=== PATIENT | male | born 1950 | race Caucasian/White ===

== ENCOUNTER 2017-03-10 11:53 | Inpatient (IN) | payer OTHER, MEDICAID ==
[~2017-03-10] VITALS: Ht 177.8 cm; Wt 89.8 kg
[2017-03-10 16:25] VITALS: BP_SYST 106
[2017-03-10] MEDS ORDERED: MULT240L PO (17:08)
[2017-03-10] MEDS ORDERED: DULR10 RC (17:08)
[2017-03-10] MEDS ORDERED: NA P118E RC (17:08)
[2017-03-10] MEDS ORDERED: LACTIN GT (17:08)
[2017-03-10] MEDS ORDERED: OMEP20CA10 GT (17:08)
[2017-03-10] MEDS ORDERED: FER300L GT (17:08)
[2017-03-10] MEDS ORDERED: EPOE20006 SUBCUT (17:08)
[2017-03-10] MEDS ORDERED: POLY17PO4 PO (17:08)
[2017-03-10] MEDS ORDERED: DEPL250/5 GT (17:08)
[2017-03-10] MEDS ORDERED: ROB1 GT (17:08)
[2017-03-10] MEDS ORDERED: TYLL650 GT (17:08)
[2017-03-10] MEDS ORDERED: MAGN400O4 PO (17:08)
[2017-03-10] MEDS ORDERED: TYC3 GT (17:09)
[2017-03-10] MEDS ORDERED: ASCO500T20 GT (17:09)
[2017-03-10] MEDS ORDERED: ZIN220 GT (17:09)
[2017-03-10] MEDS ORDERED: TYC3 PO (17:09)
[2017-03-10 17:27] LABS: BASOPHILS % (AUTO) 0.2 % (0.0-2.0); EOSINOPHILS # (AUTO) 0.4 K/uL (0.0-0.4); EOSINOPHILS % (AUTO) 3.7 % (0.0-4.0); LYMPHOCYTES # (AUTO) 1.2 K/uL (1.0-5.5); LYMPHOCYTES % (AUTO) 12.7 % (20.5-51.5); MEAN CORPUSCULAR HEMOGLOBIN 20 pg (27-31); MEAN CORPUSCULAR HGB CONC 29 % (32-36); MEAN CORPUSCULAR VOLUME 69 fL (79.0-98.0); MONOCYTES # (AUTO) 0.6 K/uL (0.0-1.0); MONOCYTES % (AUTO) 6.6 % (1.7-9.3); NEUTROPHILS # (AUTO) 7.5 K/uL (1.8-7.7); NEUTROPHILS % (AUTO) 76.8 % (40.0-70.0); PLATELET COUNT (AUTO) 399 K/uL (130-430); RED BLOOD CELL COUNT(AUTO) 3.17 MIL/uL (4.2-6.2); WHITE BLOOD COUNT (AUTO) 9.7 K/uL (4.8-10.8)
[2017-03-10] MEDS ORDERED: BISACODYL 10 MG/SUPPOSITORY RC PRN (17:30)
[2017-03-10] MEDS ORDERED: EPOETIN ALFA 20,000 UNITS/ML VIAL SUBCUT SCH (17:30)
[2017-03-10] MEDS ORDERED: MILK OF MAGNESIA 30 ML UDC PO PRN (17:30)
[2017-03-10] MEDS ORDERED: ACETAMINOPHEN/CODEINE 300 MG-30 MG TABLET GT PRN (17:30)
[2017-03-10] MEDS ORDERED: NA PHOS,M-B/NA PHOS,DI-BA 118 ML (FLEET ENEMA) RC PRN (17:30)
[2017-03-10] MEDS ORDERED: ACETAMINOPHEN 650 MG/20.3 ML UDC GT PRN (17:30)
[2017-03-10 17:31] LABS: ALBUMIN 2.6 g/dL (3.4-4.8); CALCIUM 8.6 mg/dL (8.4-11.0); CREATININE 0.56 mg/dL (0.55-1.30); INR 1.1 (0.80-1.20); POTASSIUM 3.8 mmol/L (3.5-5.1); PROTHROMBIN TIME 11.5 SECS (9.5-12.5); TOTAL BILIRUBIN 0.4 mg/dL (0.0-1.0)
[2017-03-10 17:33] LABS: HEMATOCRIT 21.7 % (36-54)
[2017-03-10] MEDS ORDERED: COMMUNICATION ORDER XX ONE (18:30)
[2017-03-10 18:31] LABS: BILIRUBIN,URINE NEGATIVE (NEGATIVE); BLOOD, URINE NEGATIVE (NEGATIVE); CLARITY/URINE HAZY (CLEAR); COLOR,URINE YELLOW (YELLOW); GLUCOSE,URINE NEGATIVE (NEGATIVE); KETONES,URINE NEGATIVE (NEGATIVE); LEUKOCYTE ESTERASE ,URINE 2+ (NEGATIVE); NITRITE, URINE POSITIVE (NEGATIVE); PH,URINE 6.5 (5.0-8.0); PROTEIN URINE TRACE (NEGATIVE)
[2017-03-10 18:33] LABS: BACTERIA,URINE MANY /HPF (None Seen); MUCUS,URINE 1+ /LPF (None Seen); RBC,URINE NONE SEEN /HPF (0-3); WBC,URINE 20-50 /HPF (0-3)
[2017-03-10 20:00] VITALS: BP_SYST 98
[2017-03-10 20:01] VITALS: BP_SYST 98
[2017-03-10] MEDS: FERROUS SULFATE 300 MG/5 ML UDC GT SCH (23:22)
[2017-03-10] MEDS: ASCORBIC ACID 500 MG TABLET GT SCH (23:23)
[2017-03-10] MEDS: ACETAMINOPHEN/CODEINE 300 MG-30 MG TABLET PO SCH (23:23)
[2017-03-10] MEDS: POLYETHYLENE GLYCOL 3350, 17 GM/ POWD.PACK PO SCH (23:23)
[2017-03-10] MEDS: GLYCOPYRROLATE 1 MG TABLET GT SCH (23:24)
[2017-03-11 00:30] VITALS: BP_SYST 110
[2017-03-11] MEDS ORDERED: FUROSEMIDE 20 MG/2 ML VIAL IVP ONE ×2 (01:15→03:30)
[2017-03-11 04:22] VITALS: BP_SYST 107
[2017-03-11 07:34] VITALS: BP_SYST 103
[2017-03-11] MEDS: ASCORBIC ACID 500 MG TABLET GT SCH ×2 (08:38→20:08)
[2017-03-11] MEDS: FERROUS SULFATE 300 MG/5 ML UDC GT SCH ×3 (08:38→20:08)
[2017-03-11] MEDS: PANTOPRAZOLE GRANULES PACKET 40 MG GT SCH (08:38)
[2017-03-11] MEDS: VALPROIC ACID ORAL SYRUP 250 MG/5 ML UDC GT SCH (08:38)
[2017-03-11] MEDS: ACETAMINOPHEN/CODEINE 300 MG-30 MG TABLET PO SCH ×2 (08:39→20:09)
[2017-03-11] MEDS: GLYCOPYRROLATE 1 MG TABLET GT SCH ×3 (08:41→20:08)
[2017-03-11 10:54] LABS: BASOPHILS % (AUTO) 0.3 % (0.0-2.0); EOSINOPHILS # (AUTO) 0.4 K/uL (0.0-0.4); EOSINOPHILS % (AUTO) 3.9 % (0.0-4.0); HEMATOCRIT 30.6 % (36-54); HEMOGLOBIN 9.2 g/dL (14.0-18.0); LYMPHOCYTES # (AUTO) 1.5 K/uL (1.0-5.5); LYMPHOCYTES % (AUTO) 13.1 % (20.5-51.5); MEAN CORPUSCULAR HEMOGLOBIN 22 pg (27-31); MEAN CORPUSCULAR HGB CONC 30 % (32-36); MEAN CORPUSCULAR VOLUME 74 fL (79.0-98.0); MONOCYTES # (AUTO) 0.7 K/uL (0.0-1.0); MONOCYTES % (AUTO) 6.5 % (1.7-9.3); NEUTROPHILS # (AUTO) 8.6 K/uL (1.8-7.7); NEUTROPHILS % (AUTO) 76.2 % (40.0-70.0); PLATELET COUNT (AUTO) 457 K/uL (130-430); RED BLOOD CELL COUNT(AUTO) 4.17 MIL/uL (4.2-6.2); RED CELL DISTRIBUTION WIDTH 20.5 % (9.0-15.0); WHITE BLOOD COUNT (AUTO) 11.2 K/uL (4.8-10.8)
[2017-03-11 11:24] VITALS: BP_SYST 106
[2017-03-11] MEDS: cefTRIAXone 1 GM in D5W 50 ML IV SCH (11:40)
[2017-03-11] MEDS: NYSTATIN 15 GM TOPICAL POWDER TP SCH ×2 (14:08→20:09)
[2017-03-11] MEDS: EPOETIN ALFA 20,000 UNITS/ML VIAL SUBCUT SCH (14:45)
[2017-03-11 15:57] VITALS: BP_SYST 107
[2017-03-11 19:10] VITALS: BP_SYST 108
[2017-03-11] MEDS: POLYETHYLENE GLYCOL 3350, 17 GM/ POWD.PACK PO SCH (20:10)
[2017-03-12] VITALS (8 sets, daily range): BP systolic 97–110
[2017-03-12 07:45] LABS: BASOPHILS # (AUTO) 0.2 K/uL (0.0-0.2); BASOPHILS % (AUTO) 2.3 % (0.0-2.0); EOSINOPHILS # (AUTO) 0.3 K/uL (0.0-0.4); EOSINOPHILS % (AUTO) 2.6 % (0.0-4.0); HEMATOCRIT 30.4 % (36-54); HEMOGLOBIN 9.5 g/dL (14.0-18.0); LYMPHOCYTES # (AUTO) 1.2 K/uL (1.0-5.5); LYMPHOCYTES % (AUTO) 11.2 % (20.5-51.5); MEAN CORPUSCULAR HEMOGLOBIN 23 pg (27-31); MEAN CORPUSCULAR HGB CONC 31 % (32-36); MEAN CORPUSCULAR VOLUME 73 fL (79.0-98.0); MONOCYTES # (AUTO) 0.5 K/uL (0.0-1.0); MONOCYTES % (AUTO) 4.5 % (1.7-9.3); NEUTROPHILS # (AUTO) 8.6 K/uL (1.8-7.7); NEUTROPHILS % (AUTO) 79.4 % (40.0-70.0); PLATELET COUNT (AUTO) 417 K/uL (130-430); RED BLOOD CELL COUNT(AUTO) 4.18 MIL/uL (4.2-6.2); WHITE BLOOD COUNT (AUTO) 10.8 K/uL (4.8-10.8)
[2017-03-12] MEDS ORDERED: IPRATROPIUM BROM 0.5 MG/2.5 ML VIAL.NEB (ATROVENT) INH PRN (08:00)
[2017-03-12] MEDS ORDERED: ALBUTEROL SULFATE 0.083% 2.5 MG/3 ML VIAL.NEB INH PRN (08:00)
[2017-03-12 08:14] LABS: CALCIUM 9.3 mg/dL (8.4-11.0); CREATININE 0.73 mg/dL (0.55-1.30); POTASSIUM 3.9 mmol/L (3.5-5.1)
[2017-03-12] MEDS: ASCORBIC ACID 500 MG TABLET GT SCH ×2 (08:36→22:39)
[2017-03-12] MEDS: FERROUS SULFATE 300 MG/5 ML UDC GT SCH ×3 (08:36→22:39)
[2017-03-12] MEDS: VALPROIC ACID ORAL SYRUP 250 MG/5 ML UDC GT SCH (08:36)
[2017-03-12] MEDS: ACETAMINOPHEN/CODEINE 300 MG-30 MG TABLET PO SCH ×2 (08:37→22:40)
[2017-03-12] MEDS: NYSTATIN 15 GM TOPICAL POWDER TP SCH ×2 (08:38→22:41)
[2017-03-12] MEDS: GLYCOPYRROLATE 1 MG TABLET GT SCH ×3 (08:39→22:40)
[2017-03-12] MEDS: PANTOPRAZOLE GRANULES PACKET 40 MG GT SCH (08:39)
[2017-03-12] MEDS: cefTRIAXone 1 GM in D5W 50 ML IV SCH (12:02)
[2017-03-12] MEDS: IPRATROPIUM BROM 0.5 MG/2.5 ML VIAL.NEB (ATROVENT) INH SCH ×3 (15:00→19:36)
[2017-03-12] MEDS: ALBUTEROL SULFATE 0.083% 2.5 MG/3 ML VIAL.NEB INH SCH ×3 (15:00→19:36)
[2017-03-12] MEDS: MUPIROCIN NASAL 2% OINT. 1 GM NS SCH (21:00)
[2017-03-12] MEDS: POLYETHYLENE GLYCOL 3350, 17 GM/ POWD.PACK PO SCH (22:40)
[2017-03-13] VITALS (7 sets, daily range): BP systolic 100–123
[2017-03-13] MEDS: ALBUTEROL SULFATE 0.083% 2.5 MG/3 ML VIAL.NEB INH SCH ×4 (01:33→19:39)
[2017-03-13] MEDS: IPRATROPIUM BROM 0.5 MG/2.5 ML VIAL.NEB (ATROVENT) INH SCH ×4 (01:34→19:39)
[2017-03-13 07:41] LABS: BASOPHILS % (AUTO) 0.2 % (0.0-2.0); EOSINOPHILS # (AUTO) 0.2 K/uL (0.0-0.4); EOSINOPHILS % (AUTO) 1.9 % (0.0-4.0); HEMOGLOBIN 9.5 g/dL (14.0-18.0); LYMPHOCYTES # (AUTO) 1.6 K/uL (1.0-5.5); LYMPHOCYTES % (AUTO) 15.4 % (20.5-51.5); MEAN CORPUSCULAR HEMOGLOBIN 23 pg (27-31); MEAN CORPUSCULAR HGB CONC 31 % (32-36); MEAN CORPUSCULAR VOLUME 74 fL (79.0-98.0); MONOCYTES # (AUTO) 0.8 K/uL (0.0-1.0); MONOCYTES % (AUTO) 7.5 % (1.7-9.3); PLATELET COUNT (AUTO) 423 K/uL (130-430); RED BLOOD CELL COUNT(AUTO) 4.19 MIL/uL (4.2-6.2); RED CELL DISTRIBUTION WIDTH 21.2 % (9.0-15.0); WHITE BLOOD COUNT (AUTO) 10.6 K/uL (4.8-10.8)
[2017-03-13] MEDS: VALPROIC ACID ORAL SYRUP 250 MG/5 ML UDC GT SCH (08:47)
[2017-03-13] MEDS: FERROUS SULFATE 300 MG/5 ML UDC GT SCH ×3 (08:47→21:00)
[2017-03-13] MEDS: GLYCOPYRROLATE 1 MG TABLET GT SCH ×3 (08:47→21:00)
[2017-03-13] MEDS: PANTOPRAZOLE GRANULES PACKET 40 MG GT SCH (08:48)
[2017-03-13] MEDS: ACETAMINOPHEN/CODEINE 300 MG-30 MG TABLET PO SCH ×2 (08:48→21:00)
[2017-03-13] MEDS: ASCORBIC ACID 500 MG TABLET GT SCH ×2 (08:48→21:00)
[2017-03-13] MEDS: EPOETIN ALFA 20,000 UNITS/ML VIAL SUBCUT SCH (08:48)
[2017-03-13] MEDS: NYSTATIN 15 GM TOPICAL POWDER TP SCH ×2 (08:49→21:13)
[2017-03-13] MEDS: MUPIROCIN NASAL 2% OINT. 1 GM NS SCH ×2 (08:49→21:13)
[2017-03-13] MEDS ORDERED: MAGNESIUM CITRATE 300 ML ORAL SOLUTION GT ONE (09:15)
[2017-03-13] MEDS: cefTRIAXone 1 GM in D5W 50 ML IV SCH (11:10)
[2017-03-13] MEDS: D5NS 1,000 ML IV SCH ×2 (16:18→23:46)
[2017-03-13] MEDS ORDERED: GOLYTELY / COLYTE SOLUTION 4 LITERS GT ONE (18:00)
[2017-03-13] MEDS: POLYETHYLENE GLYCOL 3350, 17 GM/ POWD.PACK PO SCH (21:00)
[2017-03-14] MEDS: ALBUTEROL SULFATE 0.083% 2.5 MG/3 ML VIAL.NEB INH SCH ×4 (00:27→19:53)
[2017-03-14] MEDS: IPRATROPIUM BROM 0.5 MG/2.5 ML VIAL.NEB (ATROVENT) INH SCH ×4 (00:28→19:53)
[2017-03-14 04:00] VITALS: BP_SYST 99
[2017-03-14 07:27] LABS: BASOPHILS % (AUTO) 0.2 % (0.0-2.0); EOSINOPHILS # (AUTO) 0.2 K/uL (0.0-0.4); EOSINOPHILS % (AUTO) 1.8 % (0.0-4.0); HEMATOCRIT 29.7 % (36-54); HEMOGLOBIN 9.2 g/dL (14.0-18.0); LYMPHOCYTES # (AUTO) 0.9 K/uL (1.0-5.5); LYMPHOCYTES % (AUTO) 8.9 % (20.5-51.5); MEAN CORPUSCULAR HEMOGLOBIN 23 pg (27-31); MEAN CORPUSCULAR HGB CONC 31 % (32-36); MEAN CORPUSCULAR VOLUME 75 fL (79.0-98.0); MONOCYTES # (AUTO) 0.5 K/uL (0.0-1.0); MONOCYTES % (AUTO) 4.6 % (1.7-9.3); NEUTROPHILS # (AUTO) 8.8 K/uL (1.8-7.7); NEUTROPHILS % (AUTO) 84.5 % (40.0-70.0); PLATELET COUNT (AUTO) 425 K/uL (130-430); RED BLOOD CELL COUNT(AUTO) 3.98 MIL/uL (4.2-6.2); WHITE BLOOD COUNT (AUTO) 10.4 K/uL (4.8-10.8)
[2017-03-14 07:57] LABS: INR 1.1 (0.80-1.20); PROTHROMBIN TIME 11.5 SECS (9.5-12.5)
[2017-03-14 08:12] VITALS: BP_SYST 112
[2017-03-14 08:21] LABS: CALCIUM 8.8 mg/dL (8.4-11.0); CREATININE 0.64 mg/dL (0.55-1.30); POTASSIUM 4.1 mmol/L (3.5-5.1)
[2017-03-14] MEDS: VALPROIC ACID ORAL SYRUP 250 MG/5 ML UDC GT SCH (09:00)
[2017-03-14] MEDS: ASCORBIC ACID 500 MG TABLET GT SCH ×2 (09:00→22:05)
[2017-03-14] MEDS: ACETAMINOPHEN/CODEINE 300 MG-30 MG TABLET PO SCH ×2 (09:00→22:06)
[2017-03-14] MEDS: PANTOPRAZOLE GRANULES PACKET 40 MG GT SCH (09:00)
[2017-03-14] MEDS: FERROUS SULFATE 300 MG/5 ML UDC GT SCH ×3 (09:00→22:05)
[2017-03-14] MEDS: GLYCOPYRROLATE 1 MG TABLET GT SCH ×3 (09:00→22:06)
[2017-03-14] MEDS: MUPIROCIN NASAL 2% OINT. 1 GM NS SCH ×2 (09:08→22:07)
[2017-03-14] MEDS: NYSTATIN 15 GM TOPICAL POWDER TP SCH ×2 (09:09→22:08)
[2017-03-14 11:01] LABS: HEMOGLOBIN 6.3 g/dL (14.0-18.0)
[2017-03-14 12:30] VITALS: BP_SYST 164
[2017-03-14] MEDS: D5NS 1,000 ML IV SCH (14:15)
[2017-03-14] MEDS: cefTRIAXone 1 GM in D5W 50 ML IV SCH (14:15)
[2017-03-14] MEDS: MIDAZOLAM HCL 5 MG/5 ML VIAL ONE ×2 (15:07→16:14)
[2017-03-14] MEDS ORDERED: SIMETHICONE 40 MG/0.6 ML ML ONE (15:08)
[2017-03-14] MEDS ORDERED: fentaNYL CITRATE/PF 100 MCG/2 ML AMP ONE (15:08)
[2017-03-14 16:04] VITALS: BP_SYST 100
[2017-03-14 19:41] VITALS: BP_SYST 120
[2017-03-14] MEDS: POLYETHYLENE GLYCOL 3350, 17 GM/ POWD.PACK PO SCH (21:00)
[2017-03-14 23:57] VITALS: BP_SYST 106
[2017-03-15] MEDS: IPRATROPIUM BROM 0.5 MG/2.5 ML VIAL.NEB (ATROVENT) INH SCH ×4 (00:34→19:36)
[2017-03-15] MEDS: ALBUTEROL SULFATE 0.083% 2.5 MG/3 ML VIAL.NEB INH SCH ×4 (00:34→19:36)
[2017-03-15 03:53] VITALS: BP_SYST 113
[2017-03-15] MEDS: D5NS 1,000 ML IV SCH (05:10)
[2017-03-15 08:00] VITALS: BP_SYST 130
[2017-03-15] MEDS: FERROUS SULFATE 300 MG/5 ML UDC GT SCH ×3 (09:23→21:05)
[2017-03-15] MEDS: GLYCOPYRROLATE 1 MG TABLET GT SCH ×3 (09:24→21:06)
[2017-03-15] MEDS: ASCORBIC ACID 500 MG TABLET GT SCH ×2 (09:25→21:06)
[2017-03-15] MEDS: ACETAMINOPHEN/CODEINE 300 MG-30 MG TABLET PO SCH ×2 (09:25→21:06)
[2017-03-15] MEDS: MUPIROCIN NASAL 2% OINT. 1 GM NS SCH ×2 (09:32→21:04)
[2017-03-15] MEDS: NYSTATIN 15 GM TOPICAL POWDER TP SCH ×2 (09:34→21:05)
[2017-03-15] MEDS: VALPROIC ACID ORAL SYRUP 250 MG/5 ML UDC GT SCH (09:37)
[2017-03-15] MEDS: PANTOPRAZOLE GRANULES PACKET 40 MG GT SCH (09:37)
[2017-03-15] MEDS: cefTRIAXone 1 GM in D5W 50 ML IV SCH (10:42)
[2017-03-15 12:19] VITALS: BP_SYST 130
[2017-03-15 12:20] VITALS: BP_SYST 106
[2017-03-15 17:07] VITALS: BP_SYST 99
[2017-03-15 19:30] VITALS: BP_SYST 95
[2017-03-15] MEDS: POLYETHYLENE GLYCOL 3350, 17 GM/ POWD.PACK PO SCH (21:05)
[2017-03-16] VITALS (9 sets, daily range): BP systolic 105–136
[2017-03-16] MEDS: IPRATROPIUM BROM 0.5 MG/2.5 ML VIAL.NEB (ATROVENT) INH SCH ×3 (00:15→17:16)
[2017-03-16] MEDS: ALBUTEROL SULFATE 0.083% 2.5 MG/3 ML VIAL.NEB INH SCH ×3 (00:15→17:16)
[2017-03-16] MEDS: EPOETIN ALFA 20,000 UNITS/ML VIAL SUBCUT SCH (09:31)
[2017-03-16] MEDS: FERROUS SULFATE 300 MG/5 ML UDC GT SCH ×2 (09:31→15:00)
[2017-03-16] MEDS: GLYCOPYRROLATE 1 MG TABLET GT SCH ×2 (09:32→15:00)
[2017-03-16] MEDS: PANTOPRAZOLE GRANULES PACKET 40 MG GT SCH (09:32)
[2017-03-16] MEDS: ACETAMINOPHEN/CODEINE 300 MG-30 MG TABLET PO SCH (09:32)
[2017-03-16] MEDS: ASCORBIC ACID 500 MG TABLET GT SCH (09:32)
[2017-03-16] MEDS: VALPROIC ACID ORAL SYRUP 250 MG/5 ML UDC GT SCH (09:34)
[2017-03-16] MEDS: ANTIFUNGAL CLEAR OINTMENT TP SCH ×2 (09:35→21:00)
[2017-03-16] MEDS: NYSTATIN 15 GM TOPICAL POWDER TP SCH ×2 (09:35→22:53)
[2017-03-16] MEDS: MUPIROCIN NASAL 2% OINT. 1 GM NS SCH ×2 (09:35→22:53)
[2017-03-16 13:20] LABS: BASOPHILS % (AUTO) 0.3 % (0.0-2.0); EOSINOPHILS # (AUTO) 0.3 K/uL (0.0-0.4); EOSINOPHILS % (AUTO) 3.2 % (0.0-4.0); HEMATOCRIT 28.3 % (36-54); HEMOGLOBIN 8.6 g/dL (14.0-18.0); LYMPHOCYTES # (AUTO) 1.6 K/uL (1.0-5.5); LYMPHOCYTES % (AUTO) 17.3 % (20.5-51.5); MEAN CORPUSCULAR HEMOGLOBIN 23 pg (27-31); MEAN CORPUSCULAR HGB CONC 31 % (32-36); MEAN CORPUSCULAR VOLUME 74 fL (79.0-98.0); MONOCYTES # (AUTO) 0.7 K/uL (0.0-1.0); MONOCYTES % (AUTO) 7.1 % (1.7-9.3); NEUTROPHILS # (AUTO) 6.9 K/uL (1.8-7.7); NEUTROPHILS % (AUTO) 72.1 % (40.0-70.0); PLATELET COUNT (AUTO) 367 K/uL (130-430); RED BLOOD CELL COUNT(AUTO) 3.82 MIL/uL (4.2-6.2); RED CELL DISTRIBUTION WIDTH 21.2 % (9.0-15.0); WHITE BLOOD COUNT (AUTO) 9.5 K/uL (4.8-10.8)
[2017-03-16 13:35] LABS: CALCIUM 8.7 mg/dL (8.4-11.0); CREATININE 0.75 mg/dL (0.55-1.30); POTASSIUM 4.1 mmol/L (3.5-5.1)
[2017-03-16 13:42] LABS: INR 1.1 (0.80-1.20); PROTHROMBIN TIME 11.6 SECS (9.5-12.5)
[2017-03-16] MEDS ORDERED: ROCURONIUM BROMIDE 10 MG/ML (ZEMURON) IV ONE (19:00)
[2017-03-16] MEDS ORDERED: SEVOFLURANE 15 MIN GAS INH ONE (19:00)
[2017-03-16] MEDS ORDERED: NS IRRIG SOLN 1000 ML IR ONE (19:00)
[2017-03-16] MEDS ORDERED: NS 1000 ML BAG IV ONE (19:00)
[2017-03-16] MEDS ORDERED: fentaNYL CITRATE 250 MCG/5 ML AMP IV ONE (19:00)
[2017-03-16] MEDS ORDERED: metroNIDAZOLE 500 mg/NS 100 mL IVPB IV ONE (19:00)
[2017-03-16] MEDS ORDERED: LR 1,000 ML IV.SOLN IV ONE (19:00)
[2017-03-16] MEDS ORDERED: PIPERACILLIN/TAZOBACTAM 3.375 GM/VIAL (ZOSYN) IV ONE (19:00)
[2017-03-16] MEDS ORDERED: PIPERACILLIN/TAZO 3.375/DEX-IS 50 ML IV ONE (19:15)
[2017-03-16] MEDS ORDERED: MORPHINE 2 MG/ML INJ. SYRINGE IVP PRN (19:15)
[2017-03-16] MEDS ORDERED: ONDANSETRON HCL 4 MG/2 ML VIAL IM PRN (19:15)
[2017-03-16] MEDS: POLYETHYLENE GLYCOL 3350, 17 GM/ POWD.PACK PO SCH (21:00)
[2017-03-16] MEDS: metroNIDAZOLE 500 mg/NS 100 ML IV SCH (22:40)
[2017-03-16] MEDS ORDERED: D5NS 1,000 ML IV SCH (22:45)
[2017-03-17] VITALS (34 sets, daily range): BP systolic 98–128
[2017-03-17] MEDS: PIPERACILLIN/TAZO 3.375/DEX-IS 50 ML IV SCH ×4 (01:43→17:40)
[2017-03-17] MEDS: IPRATROPIUM BROM 0.5 MG/2.5 ML VIAL.NEB (ATROVENT) INH SCH ×3 (01:53→19:41)
[2017-03-17] MEDS: ALBUTEROL SULFATE 0.083% 2.5 MG/3 ML VIAL.NEB INH SCH ×3 (01:53→19:41)
[2017-03-17] MEDS: metroNIDAZOLE 500 mg/NS 100 ML IV SCH ×3 (04:24→21:28)
[2017-03-17 06:27] LABS: HEMOGLOBIN 9.3 g/dL (14.0-18.0); MEAN CORPUSCULAR HEMOGLOBIN 23 pg (27-31); MEAN CORPUSCULAR HGB CONC 31 % (32-36); MEAN CORPUSCULAR VOLUME 75 fL (79.0-98.0); PLATELET COUNT (AUTO) 357 K/uL (130-430); RED BLOOD CELL COUNT(AUTO) 4.02 MIL/uL (4.2-6.2); RED CELL DISTRIBUTION WIDTH 20.8 % (9.0-15.0); WHITE BLOOD COUNT (AUTO) 16.3 K/uL (4.8-10.8)
[2017-03-17 06:42] LABS: ALBUMIN 2.5 g/dL (3.4-4.8); CALCIUM 8.2 mg/dL (8.4-11.0); CREATININE 0.71 mg/dL (0.55-1.30); POTASSIUM 3.8 mmol/L (3.5-5.1); TOTAL BILIRUBIN 1.2 mg/dL (0.0-1.0)
[2017-03-17 07:54] LABS: ATYPICAL LYMPHOCYTES % 0 % (0-0); BAND % (MANUAL) 4 % (0-6); BASOPHILS % (MANUAL) 0 % (0-2); EOSINOPHILS % (MANUAL) 0 % (0-7); LYMPHOCYTES % (MANUAL) 4 % (20-46); MONOCYTES % (MANUAL) 2 % (0-11)
[2017-03-17 09:46] LABS: BILIRUBIN,URINE 1+ (NEGATIVE); CLARITY/URINE CLEAR (CLEAR); COLOR,URINE YELLOW (YELLOW); GLUCOSE,URINE NEGATIVE (NEGATIVE); KETONES,URINE NEGATIVE (NEGATIVE); LEUKOCYTE ESTERASE ,URINE TRACE (NEGATIVE); NITRITE, URINE NEGATIVE (NEGATIVE); PROTEIN URINE 1+ (NEGATIVE)
[2017-03-17 09:50] LABS: BLOOD, URINE TRACE (NEGATIVE)
[2017-03-17 09:52] LABS: BACTERIA,URINE RARE /HPF (None Seen); MUCUS,URINE 1+ /LPF (None Seen); RBC,URINE 0-3 /HPF (0-3); WBC,URINE 0-3 /HPF (0-3)
[2017-03-17] MEDS: VALPROIC ACID ORAL SYRUP 250 MG/5 ML UDC GT SCH (10:10)
[2017-03-17] MEDS: PANTOPRAZOLE GRANULES PACKET 40 MG GT SCH (10:10)
[2017-03-17] MEDS: NYSTATIN 15 GM TOPICAL POWDER TP SCH ×2 (10:11→21:29)
[2017-03-17] MEDS: ANTIFUNGAL CLEAR OINTMENT TP SCH ×2 (10:12→21:30)
[2017-03-17] MEDS: MUPIROCIN NASAL 2% OINT. 1 GM NS SCH ×2 (10:12→21:30)
[2017-03-17] MEDS: D5NS 1,000 ML IV SCH ×2 (10:31→15:29)
[2017-03-17] MEDS: ACETAMINOPHEN 650 MG/20.3 ML UDC GT PRN (10:32)
[2017-03-17] MEDS: POLYETHYLENE GLYCOL 3350, 17 GM/ POWD.PACK PO SCH (21:28)
[2017-03-18] VITALS (36 sets, daily range): BP systolic 97–136
[2017-03-18] MEDS: ALBUTEROL SULFATE 0.083% 2.5 MG/3 ML VIAL.NEB INH SCH ×4 (00:06→19:50)
[2017-03-18] MEDS: IPRATROPIUM BROM 0.5 MG/2.5 ML VIAL.NEB (ATROVENT) INH SCH ×4 (00:07→19:50)
[2017-03-18] MEDS: PIPERACILLIN/TAZO 3.375/DEX-IS 50 ML IV SCH ×4 (00:17→17:30)
[2017-03-18] MEDS: ACETAMINOPHEN 650 MG/20.3 ML UDC GT PRN ×4 (01:19→23:09)
[2017-03-18] MEDS ORDERED: NACL 0.9% 1,000 ML IV ONE (02:15)
[2017-03-18] MEDS ORDERED: VANCOMYCIN HCL 1 GM/NS PREMIX 250 ML IV ONE (02:15)
[2017-03-18] MEDS: metroNIDAZOLE 500 mg/NS 100 ML IV SCH ×3 (03:55→19:40)
[2017-03-18] MEDS ORDERED: CEFEPIME 1 GM in D5W 50 ML IV ONE (04:00)
[2017-03-18] MEDS ORDERED: CEFEPIME 1 GM/VIAL (MAXIPIME) ONE (04:18)
[2017-03-18] MEDS ORDERED: VANCOMYCIN HCL 1000 MG/VIAL IV ONE (04:19)
[2017-03-18] MEDS: D5NS 1,000 ML IV SCH ×2 (06:22→17:31)
[2017-03-18 06:38] LABS: BASOPHILS % (AUTO) 0.1 % (0.0-2.0); HEMATOCRIT 23.4 % (36-54); HEMOGLOBIN 7.2 g/dL (14.0-18.0); LYMPHOCYTES # (AUTO) 1.1 K/uL (1.0-5.5); LYMPHOCYTES % (AUTO) 11.7 % (20.5-51.5); MEAN CORPUSCULAR HEMOGLOBIN 23 pg (27-31); MEAN CORPUSCULAR HGB CONC 31 % (32-36); MEAN CORPUSCULAR VOLUME 75 fL (79.0-98.0); MONOCYTES # (AUTO) 0.7 K/uL (0.0-1.0); MONOCYTES % (AUTO) 7.8 % (1.7-9.3); NEUTROPHILS # (AUTO) 7.5 K/uL (1.8-7.7); PLATELET COUNT (AUTO) 266 K/uL (130-430); RED BLOOD CELL COUNT(AUTO) 3.11 MIL/uL (4.2-6.2); RED CELL DISTRIBUTION WIDTH 20.8 % (9.0-15.0); WHITE BLOOD COUNT (AUTO) 9.3 K/uL (4.8-10.8)
[2017-03-18 06:47] LABS: ALBUMIN 2.2 g/dL (3.4-4.8); CALCIUM 7.8 mg/dL (8.4-11.0); CREATININE 0.71 mg/dL (0.55-1.30); TOTAL BILIRUBIN 0.5 mg/dL (0.0-1.0)
[2017-03-18 07:28] LABS: NEUTROPHILS % (AUTO) 80.4 % (40.0-70.0)
[2017-03-18] MEDS: ANTIFUNGAL CLEAR OINTMENT TP SCH ×2 (09:00→21:44)
[2017-03-18] MEDS: VALPROIC ACID ORAL SYRUP 250 MG/5 ML UDC GT SCH (09:54)
[2017-03-18] MEDS: PANTOPRAZOLE GRANULES PACKET 40 MG GT SCH (09:54)
[2017-03-18] MEDS: NYSTATIN 15 GM TOPICAL POWDER TP SCH ×2 (09:55→21:45)
[2017-03-18] MEDS ORDERED: MUPIROCIN 2% TOPICAL OINTMENT 22 GM TP SCH (10:45)
[2017-03-18] MEDS ORDERED: KCL 40 mEq in 100 mL (PREMIX) 100 ML IV ONE (13:30)
[2017-03-18] MEDS: VANCOMYCIN HCL 1,000 MG in NS 250 ML IV SCH (15:18)
[2017-03-18] MEDS: POLYETHYLENE GLYCOL 3350, 17 GM/ POWD.PACK PO SCH ×2 (21:00→21:44)
[2017-03-18] MEDS ORDERED: CEFEPIME 1 GM in D5W 50 ML IV SCH (21:00)
[2017-03-18] MEDS: MUPIROCIN 2% TOPICAL OINTMENT 22 GM NS SCH (21:43)
[2017-03-19] VITALS (32 sets, daily range): BP systolic 106–141
[2017-03-19] MEDS: PIPERACILLIN/TAZO 3.375/DEX-IS 50 ML IV SCH ×3 (00:26→11:33)
[2017-03-19] MEDS: IPRATROPIUM BROM 0.5 MG/2.5 ML VIAL.NEB (ATROVENT) INH SCH ×4 (00:36→19:44)
[2017-03-19] MEDS: ALBUTEROL SULFATE 0.083% 2.5 MG/3 ML VIAL.NEB INH SCH ×4 (00:36→19:44)
[2017-03-19] MEDS: VANCOMYCIN HCL 1,000 MG in NS 250 ML IV SCH ×2 (04:18→13:29)
[2017-03-19] MEDS: metroNIDAZOLE 500 mg/NS 100 ML IV SCH ×3 (06:14→20:23)
[2017-03-19] MEDS: D5NS 1,000 ML IV SCH ×2 (06:15→11:33)
[2017-03-19 06:50] LABS: BASOPHILS % (AUTO) 0.2 % (0.0-2.0); EOSINOPHILS # (AUTO) 0.1 K/uL (0.0-0.4); EOSINOPHILS % (AUTO) 1.4 % (0.0-4.0); HEMATOCRIT 23.7 % (36-54); HEMOGLOBIN 7.2 g/dL (14.0-18.0); LYMPHOCYTES % (AUTO) 13.6 % (20.5-51.5); MEAN CORPUSCULAR HEMOGLOBIN 23 pg (27-31); MEAN CORPUSCULAR HGB CONC 31 % (32-36); MEAN CORPUSCULAR VOLUME 75 fL (79.0-98.0); MONOCYTES # (AUTO) 0.6 K/uL (0.0-1.0); MONOCYTES % (AUTO) 7.7 % (1.7-9.3); NEUTROPHILS # (AUTO) 5.5 K/uL (1.8-7.7); PLATELET COUNT (AUTO) 246 K/uL (130-430); RED BLOOD CELL COUNT(AUTO) 3.18 MIL/uL (4.2-6.2); RED CELL DISTRIBUTION WIDTH 20.6 % (9.0-15.0); WHITE BLOOD COUNT (AUTO) 7.2 K/uL (4.8-10.8)
[2017-03-19 07:08] LABS: NEUTROPHILS % (AUTO) 77.1 % (40.0-70.0)
[2017-03-19 07:12] LABS: CALCIUM 7.8 mg/dL (8.4-11.0); CREATININE 0.62 mg/dL (0.55-1.30); POTASSIUM 3.1 mmol/L (3.5-5.1)
[2017-03-19] MEDS: NYSTATIN 15 GM TOPICAL POWDER TP SCH ×2 (08:41→20:24)
[2017-03-19] MEDS: PANTOPRAZOLE GRANULES PACKET 40 MG GT SCH (08:41)
[2017-03-19] MEDS: VALPROIC ACID ORAL SYRUP 250 MG/5 ML UDC GT SCH (08:41)
[2017-03-19] MEDS: MUPIROCIN 2% TOPICAL OINTMENT 22 GM NS SCH ×2 (09:07→20:24)
[2017-03-19] MEDS: ANTIFUNGAL CLEAR OINTMENT TP SCH ×2 (09:09→20:24)
[2017-03-19] MEDS: ACETAMINOPHEN 650 MG/20.3 ML UDC GT PRN ×3 (13:24→20:56)
[2017-03-19] MEDS: POLYETHYLENE GLYCOL 3350, 17 GM/ POWD.PACK PO SCH (20:24)
[2017-03-19] MEDS ORDERED: POTASSIUM CHLORIDE 20 MEQ/PKT PACKET GT ONE (22:15)
[2017-03-20] VITALS (25 sets, daily range): BP systolic 114–142
[2017-03-20] MEDS: IPRATROPIUM BROM 0.5 MG/2.5 ML VIAL.NEB (ATROVENT) INH SCH ×4 (00:58→19:51)
[2017-03-20] MEDS: ALBUTEROL SULFATE 0.083% 2.5 MG/3 ML VIAL.NEB INH SCH ×4 (00:59→19:51)
[2017-03-20] MEDS: metroNIDAZOLE 500 mg/NS 100 ML IV SCH ×3 (04:15→20:16)
[2017-03-20] MEDS: D5NS 1,000 ML IV SCH ×2 (04:16→09:53)
[2017-03-20 08:20] LABS: BASOPHILS % (AUTO) 0.5 % (0.0-2.0); EOSINOPHILS # (AUTO) 0.4 K/uL (0.0-0.4); EOSINOPHILS % (AUTO) 5.8 % (0.0-4.0); HEMATOCRIT 27.6 % (36-54); HEMOGLOBIN 8.4 g/dL (14.0-18.0); LYMPHOCYTES # (AUTO) 1.2 K/uL (1.0-5.5); LYMPHOCYTES % (AUTO) 20.1 % (20.5-51.5); MEAN CORPUSCULAR HEMOGLOBIN 23 pg (27-31); MEAN CORPUSCULAR HGB CONC 31 % (32-36); MEAN CORPUSCULAR VOLUME 75 fL (79.0-98.0); MONOCYTES # (AUTO) 0.5 K/uL (0.0-1.0); MONOCYTES % (AUTO) 7.5 % (1.7-9.3); NEUTROPHILS % (AUTO) 66.1 % (40.0-70.0); PLATELET COUNT (AUTO) 211 K/uL (130-430); RED BLOOD CELL COUNT(AUTO) 3.67 MIL/uL (4.2-6.2); WHITE BLOOD COUNT (AUTO) 6.1 K/uL (4.8-10.8)
[2017-03-20 08:29] LABS: CALCIUM 7.9 mg/dL (8.4-11.0); CREATININE 0.54 mg/dL (0.55-1.30); POTASSIUM 3.3 mmol/L (3.5-5.1)
[2017-03-20 08:35] LABS: ALBUMIN 2.2 g/dL (3.4-4.8); TOTAL BILIRUBIN 0.5 mg/dL (0.0-1.0)
[2017-03-20] MEDS: PANTOPRAZOLE GRANULES PACKET 40 MG GT SCH (09:48)
[2017-03-20] MEDS: VALPROIC ACID ORAL SYRUP 250 MG/5 ML UDC GT SCH (09:48)
[2017-03-20] MEDS: NYSTATIN 15 GM TOPICAL POWDER TP SCH ×2 (09:49→21:38)
[2017-03-20] MEDS: MUPIROCIN 2% TOPICAL OINTMENT 22 GM NS SCH ×2 (09:50→21:47)
[2017-03-20] MEDS: ANTIFUNGAL CLEAR OINTMENT TP SCH ×2 (09:53→21:57)
[2017-03-20] MEDS ORDERED: POTASSIUM CHLORIDE 20 MEQ/PKT PACKET PO ONE (10:30)
[2017-03-20] MEDS: 0.45% NACL 1,000 ML IV SCH (12:17)
[2017-03-20] MEDS: COLISTIMETHATE SODIUM 75 MG in NS 50 ML IV SCH ×2 (12:19→21:36)
[2017-03-20] MEDS: POLYETHYLENE GLYCOL 3350, 17 GM/ POWD.PACK PO SCH (21:37)
[2017-03-21] VITALS: BP_SYST 135; BP_SYST 137
[2017-03-21] MEDS: IPRATROPIUM BROM 0.5 MG/2.5 ML VIAL.NEB (ATROVENT) INH SCH ×4 (01:12→19:51)
[2017-03-21] MEDS: ALBUTEROL SULFATE 0.083% 2.5 MG/3 ML VIAL.NEB INH SCH ×4 (01:12→19:52)
[2017-03-21 03:53] VITALS: BP_SYST 134
[2017-03-21] MEDS: metroNIDAZOLE 500 mg/NS 100 ML IV SCH ×3 (04:41→20:22)
[2017-03-21] MEDS: 0.45% NACL 1,000 ML IV SCH (07:14)
[2017-03-21 07:22] LABS: BASOPHILS % (AUTO) 0.2 % (0.0-2.0); EOSINOPHILS # (AUTO) 0.5 K/uL (0.0-0.4); EOSINOPHILS % (AUTO) 7.1 % (0.0-4.0); HEMATOCRIT 28.1 % (36-54); HEMOGLOBIN 8.8 g/dL (14.0-18.0); LYMPHOCYTES # (AUTO) 1.4 K/uL (1.0-5.5); LYMPHOCYTES % (AUTO) 18.8 % (20.5-51.5); MEAN CORPUSCULAR HEMOGLOBIN 23 pg (27-31); MEAN CORPUSCULAR HGB CONC 31 % (32-36); MEAN CORPUSCULAR VOLUME 75 fL (79.0-98.0); MONOCYTES # (AUTO) 0.5 K/uL (0.0-1.0); MONOCYTES % (AUTO) 6.4 % (1.7-9.3); NEUTROPHILS # (AUTO) 4.9 K/uL (1.8-7.7); NEUTROPHILS % (AUTO) 67.5 % (40.0-70.0); PLATELET COUNT (AUTO) 234 K/uL (130-430); RED BLOOD CELL COUNT(AUTO) 3.77 MIL/uL (4.2-6.2); RED CELL DISTRIBUTION WIDTH 19.4 % (9.0-15.0); WHITE BLOOD COUNT (AUTO) 7.3 K/uL (4.8-10.8)
[2017-03-21 07:44] LABS: ALBUMIN 2.2 g/dL (3.4-4.8); CALCIUM 8.4 mg/dL (8.4-11.0); CREATININE 0.42 mg/dL (0.55-1.30); POTASSIUM 3.8 mmol/L (3.5-5.1); TOTAL BILIRUBIN 0.6 mg/dL (0.0-1.0)
[2017-03-21 08:12] VITALS: BP_SYST 115
[2017-03-21] MEDS: PANTOPRAZOLE GRANULES PACKET 40 MG GT SCH (09:27)
[2017-03-21] MEDS: NYSTATIN 15 GM TOPICAL POWDER TP SCH ×2 (09:28→20:21)
[2017-03-21] MEDS: VALPROIC ACID ORAL SYRUP 250 MG/5 ML UDC GT SCH (09:28)
[2017-03-21] MEDS: COLISTIMETHATE SODIUM 75 MG in NS 50 ML IV SCH ×2 (09:28→21:29)
[2017-03-21] MEDS: ANTIFUNGAL CLEAR OINTMENT TP SCH ×2 (09:29→20:46)
[2017-03-21] MEDS: MUPIROCIN 2% TOPICAL OINTMENT 22 GM NS SCH ×3 (09:29→21:31)
[2017-03-21 12:36] VITALS: BP_SYST 120
[2017-03-21 16:14] VITALS: BP_SYST 103
[2017-03-21] MEDS: POLYETHYLENE GLYCOL 3350, 17 GM/ POWD.PACK PO SCH (20:21)
[2017-03-21 23:33] VITALS: BP_SYST 99
[2017-03-22] MEDS: IPRATROPIUM BROM 0.5 MG/2.5 ML VIAL.NEB (ATROVENT) INH SCH ×3 (01:02→13:26)
[2017-03-22] MEDS: ALBUTEROL SULFATE 0.083% 2.5 MG/3 ML VIAL.NEB INH SCH ×3 (01:03→13:26)
[2017-03-22 03:48] VITALS: BP_SYST 107
[2017-03-22] MEDS: metroNIDAZOLE 500 mg/NS 100 ML IV SCH ×2 (03:48→12:41)
[2017-03-22] MEDS: 0.45% NACL 1,000 ML IV SCH (04:00)
[2017-03-22 08:00] VITALS: BP_SYST 99
[2017-03-22] MEDS: PANTOPRAZOLE GRANULES PACKET 40 MG GT SCH (09:46)
[2017-03-22] MEDS: NYSTATIN 15 GM TOPICAL POWDER TP SCH (09:47)
[2017-03-22] MEDS: COLISTIMETHATE SODIUM 75 MG in NS 50 ML IV SCH (09:47)
[2017-03-22] MEDS: MUPIROCIN 2% TOPICAL OINTMENT 22 GM NS SCH (09:48)
[2017-03-22] MEDS: VALPROIC ACID ORAL SYRUP 250 MG/5 ML UDC GT SCH (09:55)
[2017-03-22] MEDS: ANTIFUNGAL CLEAR OINTMENT TP SCH (09:57)
[2017-03-22 12:09] VITALS: BP_SYST 97
[2017-03-22 13:02] VITALS: BP_SYST 97
== END 2017-03-22 14:43 | DRG 853 ==
LOC: SMU 16:15 → STU 16:20 → SIC 03-16 21:45 → STU 03-20 23:28
PROVIDERS: ADMIT Family Medicine; ATTEND Family Medicine
PROC: 30233N1 Transfusion of Nonautologous Red Blood Cells into Peripheral Vein, Percutaneous Approach (ICD-10-PCS; 2017-03-10)
PROC: 30233N1 Transfusion of Nonautologous Red Blood Cells into Peripheral Vein, Percutaneous Approach (ICD-10-PCS; 2017-03-11)
PROC: 0DBL8ZZ Excision of Transverse Colon, Via Natural or Artificial Opening Endoscopic (ICD-10-PCS; 2017-03-14)
PROC: 0DBK8ZX Excision of Ascending Colon, Via Natural or Artificial Opening Endoscopic, Diagnostic (ICD-10-PCS; 2017-03-14 14:00)
PROC: 5A1955Z Respiratory Ventilation, Greater than 96 Consecutive Hours (ICD-10-PCS; 2017-03-16)
PROC: 0B21XFZ Change Tracheostomy Device in Trachea, External Approach (ICD-10-PCS; 2017-03-16)
PROC: 30233N1 Transfusion of Nonautologous Red Blood Cells into Peripheral Vein, Percutaneous Approach (ICD-10-PCS; 2017-03-16)
PROC: 0DTF0ZZ Resection of Right Large Intestine, Open Approach (ICD-10-PCS; principal; 2017-03-16 18:30)
PROC: 02HV33Z Insertion of Infusion Device into Superior Vena Cava, Percutaneous Approach (ICD-10-PCS; 2017-03-17)
PROC: B548ZZA Ultrasonography of Superior Vena Cava, Guidance (ICD-10-PCS; 2017-03-17)
PROC: 30233N1 Transfusion of Nonautologous Red Blood Cells into Peripheral Vein, Percutaneous Approach (ICD-10-PCS; 2017-03-19)
DX: A41.9 Sepsis, unspecified organism (principal); J96.20 Acute and chronic respiratory failure, unspecified whether with hypoxia or hypercapnia; G93.1 Anoxic brain damage, not elsewhere classified; L89.154 Pressure ulcer of sacral region, stage 4; J15.1 Pneumonia due to Pseudomonas; K65.9 Peritonitis, unspecified; J44.0 Chronic obstructive pulmonary disease with (acute) lower respiratory infection; C18.2 Malignant neoplasm of ascending colon; K92.2 Gastrointestinal hemorrhage, unspecified; N39.0 Urinary tract infection, site not specified; J98.11 Atelectasis; T81.4XXA Infection following a procedure, initial encounter; Y83.6 Removal of other organ (partial) (total) as the cause of abnormal reaction of the patient, or of later complication, without mention of misadventure at the time of the procedure; Y92.238 Other place in hospital as the place of occurrence of the external cause; Y95 Nosocomial condition; K21.9 Gastro-esophageal reflux disease without esophagitis; K63.5 Polyp of colon; R79.89 Other specified abnormal findings of blood chemistry; B96.20 Unspecified Escherichia coli [E. coli] as the cause of diseases classified elsewhere; Z93.0 Tracheostomy status; N18.9 Chronic kidney disease, unspecified; D50.0 Iron deficiency anemia secondary to blood loss (chronic); K29.70 Gastritis, unspecified, without bleeding; Z22.322 Carrier or suspected carrier of Methicillin resistant Staphylococcus aureus; Z86.73 Personal history of transient ischemic attack (TIA), and cerebral infarction without residual deficits; Z93.1 Gastrostomy status; Z87.01 Personal history of pneumonia (recurrent); Z90.49 Acquired absence of other specified parts of digestive tract; Z74.01 Bed confinement status
CPT/HCPCS: 36415; 36600; 43239; 45380; 71010; 80048; 80053; 80202-TC; 81000-TC; 82803-TC; 83605; 83735-TC; 83880; 85007; 85025; 85027; 85610-TC; 85730-TC; 86886; 86900; 86901; 86920; 87040-TC; 87070-TC; 87075-TC; 87081; 87086; 87186-TC; 87205-TC; 88305; 88307; 88309; 88312; 88313; 93005; 94002; 94003; 94640; 94760; C1751; J0692; J0696; J0770; J0885; J1940; J2250; J2543; J3010; J3370; J3480; J3490; J7030; J7040; J7042; J7050; J7060; J7120; NO CODE; P9021